=== PATIENT | male | born 1990 | race American Indian/Alaskan Native ===

== ENCOUNTER 2016-12-28 10:26 | Emergency (ER) | payer MEDICAID ==
[2016-12-28 10:39] VITALS: BP 107/67
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
[2016-12-28 11:24] LABS: Hematocrit 41.8 % (35.5-45.6); Hemoglobin 14.3 gm/dl (11.8-15.2); Mean Corpuscular HGB Conc 34 % (32-34); Mean Corpuscular Hemoglobin 30 pg (28-32); Mean Corpuscular Volume 88 fl (84-94); Platelet Count 200 K/mm3 (140-440); Red Blood Count 4.78 M/mm3 (3.65-5.03); Red Cell Distribution Width 12.9 % (13.2-15.2)
[2016-12-28 11:35] LABS: INR 1.04 (0.87-1.13)
[2016-12-28 11:36] LABS: Partial Thromboplastin Time 27.9 Sec. (24.2-36.6)
[2016-12-28 11:41] LABS: Alanine Aminotransferase 22 units/L (7-56); Albumin 4.5 g/dL (3.9-5); Albumin/Globulin Ratio 1.4 %; Alkaline Phosphatase 77 units/L (35-129); Anion Gap 17 mmol/L; Blood Urea Nitrogen 22 mg/dL (9-20); Carbon Dioxide 23 mmol/L (22-30); Chloride 101.5 mmol/L (98-107); Glucose 100 mg/dL (75-100); Potassium 3.8 mmol/L (3.6-5.0); Sodium 138 mmol/L (137-145); Total Protein 7.7 g/dL (6.3-8.2)
--- NOTE | 2016-12-28 12:40 | Emergency Department Report ---
ED General Adult HPI - General Chief complaint: Extremity Injury, Upper Stated complaint: RT CASSANDRA SWOLLEN Time Seen by Provider: 12/28/16 12:36 Source: patient Mode of arrival: Ambulatory Limitations: No Limitations - History of Present Illness Initial comments: 26-year-old male presents to the ED complaining about pain to the right ring with associated itching. Patient states it started with itching and then got little swollen. States now the swelling has decreased and it is just itchy. Denies induration, pus drainage. - Related Data Previous Rx's Medication Instructions Recorded Last Taken Type Hydrocortisone 2.5% [Hytone 2.5% 1 applicatio TP TID #1 tube 12/28/16 Unknown Rx CREAM] Sulfamethoxazole/Trimethoprim 1 each PO BID #14 tablet 12/28/16 Unknown Rx [Bactrim DS TAB] Allergies Allergy/AdvReac Type Severity Reaction Status Date / Time No Known Allergies Allergy Unverified 12/28/16 10:35 ED Review of Systems ROS: Stated complaint: RT CASSANDRA SWOLLEN Other details as noted in HPI Constitutional: denies: chills, fever Eyes: denies: eye pain, eye discharge, vision change ENT: denies: ear pain, throat pain Respiratory: denies: cough, shortness of breath, wheezing Cardiovascular: denies: chest pain, palpitations Endocrine: no symptoms reported Gastrointestinal: denies: abdominal pain, nausea, diarrhea Genitourinary: denies: urgency, dysuria Musculoskeletal: denies: back pain, joint swelling, arthralgia Skin: rash. denies: lesions Neurological: denies: headache, weakness, paresthesias Psychiatric: denies: anxiety, depression Hematological/Lymphatic: denies: easy bleeding, easy bruising ED Past Medical Hx - Past Medical History Previous Medical History?: No - Surgical History Past Surgical History?: Yes Additional Surgical History: skin grafts - Social History Smoking Status: Never Smoker Substance Use Type: None - Medications Home Medications: Home Medications Medication Instructions Recorded Confirmed Last Taken Type Hydrocortisone 2.5% [Hytone 2.5% 1 applicatio TP TID #1 tube 12/28/16 Unknown Rx CREAM] Sulfamethoxazole/Trimethoprim 1 each PO BID #14 tablet 12/28/16 Unknown Rx [Bactrim DS TAB] ED Physical Exam - General Limitations: No Limitations General appearance: alert, in no apparent distress - Head Head exam: Present: atraumatic, normocephalic - Eye Eye exam: Present: normal appearance - ENT ENT exam: Present: mucous membranes moist - Neck Neck exam: Present: normal inspection - Respiratory Respiratory exam: Present: normal lung sounds bilaterally. Absent: respiratory distress - Cardiovascular Cardiovascular Exam: Present: regular rate, normal rhythm. Absent: systolic murmur, diastolic murmur, rubs, gallop - GI/Abdominal GI/Abdominal exam: Present: soft, normal bowel sounds - Rectal Rectal exam: Present: deferred - Extremities Exam Extremities exam: Present: normal inspection - Back Exam Back exam: Present: normal inspection - Neurological Exam Neurological exam: Present: alert, oriented X3 - Psychiatric Psychiatric exam: Present: normal affect, normal mood - Skin Skin exam: Present: warm, dry, intact, normal color, other (there is a papule on the right ring finger with slight tenderness. No sign of swelling, thus drainage, warmth.). Absent: rash ED Course Vital Signs 12/28/16 10:35 Temperature 97.7 F Pulse Rate 80 Respiratory 16 Rate Blood Pressure 107/67 O2 Sat by Pulse 97 Oximetry ED Medical Decision Making - Lab Data Result diagrams: 12/28/16 11:09 12/28/16 11:09 Vital Signs 12/28/16 10:35 Temperature 97.7 F Pulse Rate 80 Respiratory 16 Rate Blood Pressure 107/67 O2 Sat by Pulse 97 Oximetry Laboratory Results - last 24 hr 12/28/16 12/28/16 12/28/16 11:09 11:09 11:09 WBC 6.0 RBC 4.78 Hgb 14.3 Hct 41.8 MCV 88 MCH 30 MCHC 34 RDW 12.9 L Plt Count 200 PT 13.5 INR 1.04 APTT 27.9 D-Dimer < 135.00 Sodium 138 Potassium 3.8 Chloride 101.5 Carbon Dioxide 23 Anion Gap 17 BUN 22 H Creatinine 0.8 Estimated GFR > 60 BUN/Creatinine Ratio 27.50 Glucose 100 Calcium 9.0 Total Bilirubin 1.20 AST 18 ALT 22 Alkaline Phosphatase 77 Total Protein 7.7 Albumin 4.5 Albumin/Globulin Ratio 1.4 - Medical Decision Making Patient is resting comfortably at this time. Lab work was ordered in triage. Labs were negative and no sign of abscess. We'll cover with antibiotics and hydrocortisone cream for itching. Critical care attestation.: If time is entered above; I have spent that time in minutes in the direct care of this critically ill patient, excluding procedure time. ED Disposition Clinical Impression: Rash and nonspecific skin eruption Disposition: DISCHARGED TO HOME OR SELFCARE Is pt being admited?: No Does the pt Need Aspirin: No Condition: Good Instructions: Urticaria (ED) Additional Instructions: Take medication as prescribed. Use ointment as needed. Prescriptions: Hydrocortisone 2.5% [Hytone 2.5% CREAM] 1 applicatio TP TID #1 tube Sulfamethoxazole/Trimethoprim [Bactrim DS TAB] 1 each PO BID #14 tablet Referrals: PRIMARY CARE, [Primary Care Provider] - 3-5 Days Forms: Work/School Release Form(ED) Time of Disposition: 12:40
--- NOTE | 2016-12-29 07:58 | Vascular Lab Report ---
RIGHT UPPER EXTREMITY VENOUS DUPLEX: REASON FOR EXAM: History of DVT COMMENTS ON THE RIGHT: All arm veins visualized are freely compressible without evidence of internal echogenicity. The subclavian and internal jugular veins are free of thrombus. Flow is spontaneous and phasic throughout. COMMENTS ON THE LEFT: The subclavian and internal jugular veins are free of thrombus. IMPRESSION: No evidence of acute or chronic deep venous thrombosis in the right upper extremity.
== END 2016-12-28 12:57 | disposition home or self-care (01) ==
LOC: ED 10:26
DX: R21 Rash and other nonspecific skin eruption (principal)
CPT/HCPCS: 36415; 80053; 85027; 85379; 85610; 85730

== ENCOUNTER 2017-04-17 19:34 | Emergency (ER) | payer MEDICAID ==
[2017-04-17 22:05] LABS: Bilirubin,Urine NEG (Negative); Blood,Urine NEG (Negative); Ketones,Urine NEG (Negative); Leukocyte Esterase,Urine TR (Negative); Mucus,Urine FEW /HPF; Nitrite,Urine NEG (Negative); Protein,Urine <15 mg/dL mg/dL (Negative); Urobilinogen,Urine < 2.0 mg/dL (<2.0)
[2017-04-17] MEDS ORDERED: ROCEPHIN IM ONE (22:41)
[2017-04-17] MEDS ORDERED: ZITHROMAX PO ONE (22:41)
[2017-04-17] MEDS ORDERED: XYLOCAINE 1% MPF 5 mL INFILTRATI ONE (22:41)
--- NOTE | 2017-04-17 22:49 | Emergency Department Report ---
ED Male HPI - General Chief complaint: Urogenital-Male Stated complaint: STD SCREENING Time Seen by Provider: 04/17/17 22:35 Source: patient Mode of arrival: Ambulatory Limitations: No Limitations - History of Present Illness Initial comments: PT states he had full panel STD testing a few weeks ago. PT states he has been having unprotected sex. PT states today he had dysuria and he wanted to get checked. MD Complaint: dysuria -: Gradual, days(s) Location: penis Severity: mild Severity scale (0 -10): 1 Quality: burning (with urination ) Consistency: intermittent (with urination ) Worsens with: urination new sexual partner denies other symptoms. denies: fever, nausea/vomiting - Related Data Sexually active: Yes Previous Rx's Medication Instructions Recorded Last Taken Type Hydrocortisone 2.5% [Hytone 2.5% 1 applicatio TP TID #1 tube 12/28/16 Unknown Rx CREAM] Sulfamethoxazole/Trimethoprim 1 each PO BID #14 tablet 12/28/16 Unknown Rx [Bactrim DS TAB] Allergies Allergy/AdvReac Type Severity Reaction Status Date / Time No Known Allergies Allergy Unverified 12/28/16 10:35 ED Review of Systems ROS: Stated complaint: STD SCREENING Other details as noted in HPI Comment: All other systems reviewed and negative Constitutional: denies: fever ENT: denies: throat pain Gastrointestinal: denies: abdominal pain Genitourinary: dysuria. denies: discharge, testicular pain, testicular mass Musculoskeletal: denies: back pain Skin: denies: rash ED Past Medical Hx - Past Medical History Previous Medical History?: No - Surgical History Additional Surgical History: skin grafts - Social History Smoking Status: Never Smoker Substance Use Type: None - Medications Home Medications: Home Medications Medication Instructions Recorded Confirmed Last Taken Type Hydrocortisone 2.5% [Hytone 2.5% 1 applicatio TP TID #1 tube 12/28/16 Unknown Rx CREAM] Sulfamethoxazole/Trimethoprim 1 each PO BID #14 tablet 12/28/16 Unknown Rx [Bactrim DS TAB] ED Physical Exam - General Limitations: No Limitations General appearance: alert, in no apparent distress - Head Head exam: Present: atraumatic, normocephalic, other (skin graft scars noted ) - Eye Eye exam: Present: normal appearance, PERRL, EOMI. Absent: conjunctival injection - ENT ENT exam: Present: normal exam, mucous membranes moist, normal external ear exam - Neck Neck exam: Present: normal inspection, full ROM - Respiratory Respiratory exam: Present: normal lung sounds bilaterally. Absent: respiratory distress, chest wall tenderness - Cardiovascular Cardiovascular Exam: Present: regular rate, normal rhythm, normal heart sounds - GI/Abdominal GI/Abdominal exam: Present: soft. Absent: tenderness - Extremities Exam Extremities exam: Present: normal inspection, full ROM - Back Exam Back exam: Present: normal inspection, full ROM. Absent: tenderness, CVA tenderness (R), CVA tenderness (L), muscle spasm, paraspinal tenderness, vertebral tenderness - Neurological Exam Neurological exam: Present: alert, oriented X3 - Psychiatric Psychiatric exam: Present: normal affect, normal mood - Skin Skin exam: Present: warm, dry, intact ED Course Vital Signs 04/17/17 20:54 Temperature 98.3 F Pulse Rate 72 Respiratory 18 Rate Blood Pressure 119/70 Blood Pressure 119/70 [Left] O2 Sat by Pulse 99 Oximetry - Reevaluation(s) Reevaluation #1: 04/17/17 22:44 PT aware of available lab results. PT aware gc/ct testing is pending. PT requesting empiric treatment. PT aware he is to refrain from sexual activity for the next 7 days. PT encouraged to follow up for full panel std testing. PT aware his partners may need testing/ treatment. PT has no questions at this time. - Pulse Oximetry Interpretation Digit-Finger Initial Pulse Oximetry Readin Actions Taken: none ED Medical Decision Making - Differential Diagnosis uti, std Critical Care Time: No Critical care attestation.: If time is entered above; I have spent that time in minutes in the direct care of this critically ill patient, excluding procedure time. ED Disposition Clinical Impression: Dysuria, Risky sexual behavior Disposition: DC-01 TO HOME OR SELFCARE Is pt being admited?: No Does the pt Need Aspirin: No Condition: Stable Instructions: Sexually Transmitted Diseases (ED), Safe Sex (ED) Additional Instructions: No sex x 7 days Follow up with medical records in the next 3-5 days for copies of your lab work / cultures your partners may needs testing/ treatment follow up with PCP or health dept for full panel std testing Referrals: COURT LIN MD [Primary Care Provider] - 3-5 Days MARBELLA HENDRIX MD [Staff Physician] - 3-5 Days [facility] [Outside] - 3-5 Days [facility] [Outside] - 3-5 Days Forms: Work/School Release Form(ED) Time of Disposition: 22:50
[2017-04-17 23:22] VITALS: BP 129/75
== END 2017-04-17 23:25 | disposition home or self-care (01) ==
LOC: ED 19:34
DX: R30.0 Dysuria (principal); R46.89 Other symptoms and signs involving appearance and behavior
CPT/HCPCS: 81001; 87591; 96372; 99283; J0696

== ENCOUNTER 2017-06-02 14:19 | Emergency (ER) | payer MEDICAID ==
[2017-06-02] MEDS ORDERED: ZITHROMAX PO ONE (20:21)
[2017-06-02] MEDS ORDERED: ROCEPHIN IM ONE (20:21)
[2017-06-02] MEDS ORDERED: XYLOCAINE 1% MPF 5 mL INFILTRATI ONE (20:21)
--- NOTE | 2017-06-02 20:26 | Emergency Department Report ---
ED Male HPI - General Chief complaint: Urogenital-Male Stated complaint: STD SCREENING Time Seen by Provider: 06/02/17 19:19 Source: patient Mode of arrival: Ambulatory Limitations: No Limitations - History of Present Illness Initial comments: This is a 27-year-old male nontoxic, well nourished in appearance, no acute signs of distress presents to the ED complaining of possible STD exposure and penile itching. Patient stated he had intercourse with unknown partner last week and developed the symptoms. Patient denies any penile discharge, testicular pain, penile lesion or ulcer, fever, chills, nausea, vomiting, chest pain, shortness of breath, dysuria, polyuria, hematuria, numbness or tingling. Patient denies any allergies or past medical history. PAtient stated that he thinks he develped the itching due to latex condoms and stated symptoms has subsided but is still concerned about STD exposure and wants to be treated empirically. MD Complaint: other (penile itching) -: Gradual, week(s) (1) Location: penis Radiation: none Severity: mild Severity scale (0 -10): 5 Quality: other (itching) Consistency: constant Improves with: none Worsens with: none denies other symptoms, other (penile itching). denies: discharge, swelling, mass, rash, urinary retention, blood in urine, dysuria, fever, nausea/vomiting, incontinence - Related Data Sexually active: Yes Previous Rx's Medication Instructions Recorded Last Taken Type Hydrocortisone 2.5% [Hytone 2.5% 1 applicatio TP TID #1 tube 12/28/16 Unknown Rx CREAM] Sulfamethoxazole/Trimethoprim 1 each PO BID #14 tablet 12/28/16 Unknown Rx [Bactrim DS TAB] Allergies Allergy/AdvReac Type Severity Reaction Status Date / Time No Known Allergies Allergy Unverified 12/28/16 10:35 ED Review of Systems ROS: Stated complaint: STD SCREENING Other details as noted in HPI Constitutional: denies: chills, fever Eyes: denies: eye pain, eye discharge, vision change ENT: denies: ear pain, throat pain Respiratory: denies: cough, shortness of breath, wheezing Cardiovascular: denies: chest pain, palpitations Endocrine: no symptoms reported Gastrointestinal: denies: abdominal pain, nausea, diarrhea Genitourinary: other (penile itching). denies: urgency, dysuria Musculoskeletal: denies: back pain, joint swelling, arthralgia Skin: denies: rash, lesions Neurological: denies: headache, weakness, paresthesias Psychiatric: denies: anxiety, depression Hematological/Lymphatic: denies: easy bleeding, easy bruising ED Past Medical Hx - Past Medical History Previous Medical History?: No - Surgical History Past Surgical History?: Yes Additional Surgical History: skin grafts - Social History Smoking Status: Never Smoker Substance Use Type: None - Medications Home Medications: Home Medications Medication Instructions Recorded Confirmed Last Taken Type Hydrocortisone 2.5% [Hytone 2.5% 1 applicatio TP TID #1 tube 12/28/16 Unknown Rx CREAM] Sulfamethoxazole/Trimethoprim 1 each PO BID #14 tablet 12/28/16 Unknown Rx [Bactrim DS TAB] ED Physical Exam - General Limitations: No Limitations General appearance: alert, in no apparent distress - Head Head exam: Present: atraumatic, normocephalic - Eye Eye exam: Present: normal appearance, PERRL, EOMI. Absent: scleral icterus, conjunctival injection, nystagmus, periorbital swelling, periorbital tenderness Pupils: Present: normal accommodation - ENT ENT exam: Present: normal exam, normal orophraynx, mucous membranes moist, TM's normal bilaterally, normal external ear exam - Neck Neck exam: Present: normal inspection, full ROM. Absent: tenderness, meningismus, lymphadenopathy, thyromegaly - Respiratory Respiratory exam: Present: normal lung sounds bilaterally. Absent: respiratory distress, wheezes, rales, rhonchi, stridor, chest wall tenderness, accessory muscle use, decreased breath sounds, prolonged expiratory - Cardiovascular Cardiovascular Exam: Present: regular rate, normal rhythm, normal heart sounds. Absent: bradycardia, tachycardia, irregular rhythm, systolic murmur, diastolic murmur, rubs, gallop - GI/Abdominal GI/Abdominal exam: Present: soft, normal bowel sounds. Absent: distended, tenderness, guarding, rebound, rigid, diminished bowel sounds - Rectal Rectal exam: Present: deferred - exam: Present: normal inspection. Absent: testicular tenderness, urethral discharge, scrotal swelling, vertical testicular lie External exam: Present: normal external exam, other (No rash, lesion, ulcers or abnormal exam. ). Absent: erythema, swelling, lesions, lacerations, ecchymosis , bleeding - Extremities Exam Extremities exam: Present: normal inspection, full ROM, normal capillary refill. Absent: tenderness, pedal edema, joint swelling, calf tenderness - Back Exam Back exam: Present: normal inspection, full ROM. Absent: tenderness, CVA tenderness (R), CVA tenderness (L), muscle spasm, paraspinal tenderness, vertebral tenderness, rash noted - Neurological Exam Neurological exam: Present: alert, oriented X3, CN II-XII intact, normal gait, reflexes normal - Psychiatric Psychiatric exam: Present: normal affect, normal mood - Skin Skin exam: Present: warm, dry, intact, normal color. Absent: rash ED Course Vital Signs 06/02/17 14:25 Temperature 97.6 F Pulse Rate 80 Respiratory 14 Rate Blood Pressure 128/72 [Right] O2 Sat by Pulse 99 Oximetry - Reevaluation(s) Reevaluation #1: 06/02/17 20:31 Patient is speaking in full sentences with no signs of distress noted. Reevaluation #2: 06/02/17 20:31 Patient received Rocephin and azithromycin empirically for STD. Patient was instructed to return in 3 days to obtain gonorrhea and chlamydia. Reevaluation #3: 06/02/17 20:32 UA obtained and pending. Critical care attestation.: If time is entered above; I have spent that time in minutes in the direct care of this critically ill patient, excluding procedure time. ED Disposition Clinical Impression: Possible exposure to STD Disposition: DC-01 TO HOME OR SELFCARE Is pt being admited?: No Does the pt Need Aspirin: No Condition: Stable Instructions: Safe Sex (ED) Additional Instructions: Follow-up with a primary care doctor in 3-5 days or if symptoms worsen and continue return to emergency room as soon as possible possible. Return in 3 days medical records to obtain results of gonorrhea and chlamydia Referrals: COURT LIN MD [Primary Care Provider] - 3-5 Days JAKOB JASSO MD [Staff Physician] - 3-5 Days [facility] [Outside] - 3-5 Days [facility] [Outside] - 3-5 Days Forms: Work/School Release Form(ED)
[2017-06-02 20:58] LABS: Bilirubin,Urine NEG (Negative); Blood,Urine NEG (Negative); Ketones,Urine NEG (Negative); Leukocyte Esterase,Urine NEG (Negative); Nitrite,Urine NEG (Negative); Protein,Urine <15 mg/dL mg/dL (Negative); RBC,Urine < 1.0 /HPF (0.0-6.0); Urobilinogen,Urine < 2.0 mg/dL (<2.0); WBC,Urine < 1.0 /HPF (0.0-6.0)
[2017-06-03 03:46] VITALS: BP 116/70
== END 2017-06-02 21:20 | disposition home or self-care (01) ==
LOC: ED 14:19
DX: N48.89 Other specified disorders of penis (principal)
CPT/HCPCS: 81001; 96372; 99283; J0696; 87591

== ENCOUNTER 2017-09-02 12:52 | Emergency (ER) | payer MEDICAID ==
--- NOTE | 2017-09-02 20:22 | Emergency Department Report ---
ED Male HPI - General Chief complaint: Urogenital-Male Stated complaint: GENITAL TINGLING Time Seen by Provider: 09/02/17 20:11 Source: patient Mode of arrival: Ambulatory Limitations: No Limitations - History of Present Illness Initial comments: This 27-year-old male nontoxic, well nourished in appearance, no acute signs of distress presents to the ED with c/o of dysuria, penile itching and irritation 1 only. Patient stated he had a sexual intercourse last week and then developed the symptoms. Patient denies any penile discharge, testicular pain, testicular swelling, fever, chills, nausea, vomiting, chest pain, shortness of breath, abdominal pain, back pain, headache, stiff neck, penile ulcer or penile lesion. Patient denies hematuria or polyuria. Patient denies any allergies or PMH. Patient stated he wants empirical treatment for STD. MD Complaint: dysuria, other (penile irritation and itching) -: week(s) (1) Location: penis Radiation: none Severity: mild Severity scale (0 -10): 8 Quality: burning Consistency: constant Improves with: none Worsens with: urination dysuria. denies: discharge, swelling, mass, rash, urinary retention, blood in urine, fever, nausea/vomiting, incontinence - Related Data Previous Rx's Medication Instructions Recorded Last Taken Type Hydrocortisone 2.5% [Hytone 2.5% 1 applicatio TP TID #1 tube 12/28/16 Unknown Rx CREAM] Sulfamethoxazole/Trimethoprim 1 each PO BID #14 tablet 12/28/16 Unknown Rx [Bactrim DS TAB] Allergies Allergy/AdvReac Type Severity Reaction Status Date / Time No Known Allergies Allergy Unverified 12/28/16 10:35 ED Review of Systems ROS: Stated complaint: GENITAL TINGLING Other details as noted in HPI Constitutional: denies: chills, fever Eyes: denies: eye pain, eye discharge, vision change ENT: denies: ear pain, throat pain Respiratory: denies: cough, shortness of breath, wheezing Cardiovascular: denies: chest pain, palpitations Endocrine: no symptoms reported Gastrointestinal: denies: abdominal pain, nausea, diarrhea Genitourinary: dysuria. denies: urgency Musculoskeletal: denies: back pain, joint swelling, arthralgia Skin: denies: rash, lesions Neurological: denies: headache, weakness, paresthesias Psychiatric: denies: anxiety, depression Hematological/Lymphatic: denies: easy bleeding, easy bruising ED Past Medical Hx - Past Medical History Previous Medical History?: No - Surgical History Past Surgical History?: Yes Additional Surgical History: skin grafts - Social History Smoking Status: Never Smoker Substance Use Type: None - Medications Home Medications: Home Medications Medication Instructions Recorded Confirmed Last Taken Type Hydrocortisone 2.5% [Hytone 2.5% 1 applicatio TP TID #1 tube 12/28/16 Unknown Rx CREAM] Sulfamethoxazole/Trimethoprim 1 each PO BID #14 tablet 12/28/16 Unknown Rx [Bactrim DS TAB] ED Physical Exam - General Limitations: No Limitations General appearance: alert, in no apparent distress - Head Head exam: Present: atraumatic, normocephalic, normal inspection - Eye Eye exam: Present: normal appearance, PERRL, EOMI. Absent: scleral icterus, conjunctival injection, nystagmus, periorbital swelling, periorbital tenderness Pupils: Present: normal accommodation - ENT ENT exam: Present: normal exam, normal orophraynx, mucous membranes moist, TM's normal bilaterally, normal external ear exam - Neck Neck exam: Present: normal inspection, full ROM. Absent: tenderness, meningismus, lymphadenopathy, thyromegaly - Respiratory Respiratory exam: Present: normal lung sounds bilaterally. Absent: respiratory distress, wheezes, rales, rhonchi, stridor, chest wall tenderness, accessory muscle use, decreased breath sounds, prolonged expiratory - Cardiovascular Cardiovascular Exam: Present: regular rate, normal rhythm, normal heart sounds. Absent: bradycardia, tachycardia, irregular rhythm, systolic murmur, diastolic murmur, rubs, gallop - GI/Abdominal GI/Abdominal exam: Present: soft, normal bowel sounds. Absent: distended, tenderness, guarding, rebound, rigid, diminished bowel sounds - Rectal Rectal exam: Present: deferred - exam: Present: normal inspection. Absent: testicular tenderness, urethral discharge, scrotal swelling, vertical testicular lie, circumcision External exam: Present: normal external exam. Absent: erythema, swelling, lesions, lacerations, ecchymosis, bleeding - Extremities Exam Extremities exam: Present: normal inspection, full ROM, normal capillary refill. Absent: tenderness, pedal edema, joint swelling, calf tenderness - Back Exam Back exam: Present: normal inspection, full ROM. Absent: tenderness, CVA tenderness (R), CVA tenderness (L), muscle spasm, paraspinal tenderness, vertebral tenderness, rash noted - Neurological Exam Neurological exam: Present: alert, oriented X3, CN II-XII intact, normal gait, reflexes normal - Psychiatric Psychiatric exam: Present: normal affect, normal mood - Skin Skin exam: Present: warm, dry, intact, normal color. Absent: rash ED Course Vital Signs 09/02/17 14:40 Temperature 97.5 F L Pulse Rate 75 Respiratory 18 Rate Blood Pressure 119/75 O2 Sat by Pulse 100 Oximetry - Reevaluation(s) Reevaluation #1: 09/02/17 20:21 Patient is speaking in full sentences with no signs of distress noted. ED Medical Decision Making - Medical Decision Making This is a 27-year-old male who presents with possible STD exposure. Patient is stable and was examined by me. UA obtained. Gonorrhea and chlamydia obtained and pending. Patient was instructed to return in 3 days to obtain results of that area chlamydia. Patient said he wants to be treated empirically so patient received Rocephin and azithromycin in the ED. Patient was instructed Follow-up with a primary care doctor in 3-5 days or if symptoms worsen and continue return to emergency room as soon as possible. At time time of discharge, the patient does not seem toxic or ill in appearance. No acute signs of distress noted. Patient agrees to discharge treatment plan of care. No further questions noted by the patient. Critical care attestation.: If time is entered above; I have spent that time in minutes in the direct care of this critically ill patient, excluding procedure time. ED Disposition Clinical Impression: Possible exposure to STD Disposition: DC-01 TO HOME OR SELFCARE Is pt being admited?: No Does the pt Need Aspirin: No Condition: Stable Instructions: Safe Sex (ED) Additional Instructions: Follow-up with a primary care doctor in 3-5 days or if symptoms worsen and continue return to emergency room as soon as possible. Return in 3 days to obtain results of gonorrhea and chlamydia Referrals: PRIMARY MD RILEY [Primary Care Provider] - 3-5 Days AVANI COHEN MD [Staff Physician] - 3-5 Days [facility] [Outside] - 3-5 Days [facility] [Outside] - 3-5 Days Forms: Work/School Release Form(ED)
[2017-09-02 20:40] LABS: Bilirubin,Urine NEG (Negative); Blood,Urine NEG (Negative); Color,Urine Yellow (Yellow); Nitrite,Urine NEG (Negative); Protein,Urine <15 mg/dL mg/dL (Negative)
[2017-09-02] MEDS ORDERED: XYLOCAINE 1% MPF 5 mL INFILTRATI ONE (20:42)
[2017-09-02] MEDS ORDERED: ROCEPHIN IM ONE (20:42)
[2017-09-02] MEDS ORDERED: ZITHROMAX PO ONE (20:42)
[2017-09-02 21:07] VITALS: BP 154/84
== END 2017-09-02 21:07 | disposition home or self-care (01) ==
LOC: ED 12:52
DX: R30.0 Dysuria (principal); N48.89 Other specified disorders of penis
CPT/HCPCS: 81001; 87591; 96372; 99283; J0696

== ENCOUNTER 2018-01-26 10:26 | Emergency (ER) | payer MEDICAID ==
[2018-01-26 11:18] VITALS: BP 98/45
--- NOTE | 2018-01-26 13:16 | Emergency Department Report ---
ED Rash HPI - HPI Chief Complaint: Skin Rash Stated Complaint: L ARM RASH Time Seen by Provider: 01/26/18 12:12 Duration: 2 Days Location: Upper Extremities (right forearm) Suspected Cause: Unknown Rash Symptoms: Yes Itching, No Facial Swelling, No Tongue/Oral Swelling, No Breathing Difficulties, No Choking Sensation, No Wheezing/Dyspnea, No Peeling, No Blistering, No Fever, No Lightheaded, No Malaise, No Myalgias Severity: mild Other History: This is a 27-year-old -[place] male who presents with a rash to the left forearm for 2 days. Patient reports applying shape bladder and Eucerin cream with some improvement on the first day the symptoms returned yesterday. Patient does have a history of skin grafts from [place] when he was a child and periodically have skin sensitivity. Patient reports starting a new soap last week and symptoms started 4-5 days later. States rash is itchy and intermittent. Patient denies shortness of breath, drooling, difficulty breathing, chest pain, and tongue swelling. ED Review of Systems ROS: Stated complaint: L ARM RASH Other details as noted in HPI Constitutional: denies: chills, fever Respiratory: denies: cough, shortness of breath, wheezing Cardiovascular: denies: chest pain, palpitations Gastrointestinal: denies: abdominal pain, nausea, vomiting, diarrhea Skin: rash (left forearm). denies: lesions, change in color, change in hair/ nails Neurological: denies: headache, weakness, paresthesias Psychiatric: denies: anxiety, depression ED Past Medical Hx - Past Medical History Previous Medical History?: No - Surgical History Past Surgical History?: Yes Additional Surgical History: skin grafts - Social History Smoking Status: Never Smoker Substance Use Type: None - Medications Home Medications: Home Medications Medication Instructions Recorded Confirmed Last Taken Type Hydrocortisone 2.5% [Hytone 2.5% 1 applicatio TP TID #1 tube 12/28/16 Unknown Rx CREAM] Sulfamethoxazole/Trimethoprim 1 each PO BID #14 tablet 12/28/16 Unknown Rx [Bactrim DS TAB] Triamcinolone Acetonide 15 gm TP BID #1 cream..g. 01/26/18 Unknown Rx Rash Exam - Exam General: Vital signs noted. No distress. Alert and acting appropriately. HEENT: No Periorbital Edema, No Conjuctival Injection, No Chemosis, No Perioral Edema, No Tongue Edema, No Uvular Edema, No Compromised Airway, No Drooling Lungs: Yes Good Air Exchange (Normal Breath Sounds), No Wheezes, No Ronchi, No Stridor, No Cough, No Labored Respirations, No Retractions, No Use of Accessory Muscles, No Other Abnormal Lung Sounds Heart: Yes Regular, No Murmur Skin: Yes Maculopapular Rash (erythematous maculopapular 2-3 cm rash to posterior forearm, blanchable, nontender), No Urticarial Rash, No Morbilliform rash, No Bulla(e), No Excoriations, No Weeping, No Tenderness, No Erythema, No Edema, No Encrustations, No Other ED Course Vital Signs 01/26/18 11:14 Temperature 98.6 F Pulse Rate 74 Respiratory 16 Rate Blood Pressure 98/45 O2 Sat by Pulse 99 Oximetry ED Medical Decision Making - Medical Decision Making This is a 27-year-old -[place] male Presents with rash to left forearm. History of skin grafts. Patient examined by me. No distress noted. Vitals stable. Physical assessment susceptible of contact dermatitis. Start triamcinolone cream and f/u with PCP in 24-72 hours. Discussed plan with patient and agreed to plan. Referrals to dermatology. Critical care attestation.: If time is entered above; I have spent that time in minutes in the direct care of this critically ill patient, excluding procedure time. ED Disposition Clinical Impression: Contact dermatitis Qualifiers: Contact dermatitis type: irritant Contact dermatitis trigger: unspecified trigger Qualified Code(s): L24.9 - Irritant contact dermatitis, unspecified cause Disposition: DC-01 TO HOME OR SELFCARE Is pt being admited?: No Does the pt Need Aspirin: No Condition: Stable Instructions: Contact Dermatitis (ED) Additional Instructions: Apply a thin layer of triamcinolone cream twice a day for 5-10 days. Wash area daily. Follow up with primary care provider in 24-72 hours. Prescriptions: Triamcinolone Acetonide 15 gm TP BID #1 cream..g. Referrals: KENNEDY CORRAL MD [Staff Physician] - 3-5 Days ANTHONY LOERA MD [Staff Physician] - 3-5 Days [facility] [Outside] - 3-5 Days Forms: Work/School Release Form(ED) Time of Disposition: 13:20 Print Language: MACEDONIAN
== END 2018-01-26 13:31 | disposition home or self-care (01) ==
LOC: ED 10:26
DX: L24.9 Irritant contact dermatitis, unspecified cause (principal)
CPT/HCPCS: 99282

== ENCOUNTER 2018-04-07 17:31 | Emergency (ER) | payer MEDICAID ==
[2018-04-07 17:46] VITALS: BP 109/64
[2018-04-07] MEDS ORDERED: ROCEPHIN IM ONE (21:08)
[2018-04-07] MEDS ORDERED: ZITHROMAX PO ONE (21:08)
[2018-04-07] MEDS ORDERED: XYLOCAINE 1% MPF 5 mL INFILTRATI ONE (21:08)
--- NOTE | 2018-04-07 21:08 | Emergency Department Report ---
ED Male HPI - General Chief complaint: Urogenital-Male Stated complaint: STD TESTING Time Seen by Provider: 04/07/18 19:47 Source: patient Mode of arrival: Ambulatory Limitations: No Limitations - History of Present Illness Initial comments: This is a 27-year-old male nontoxic, well nourished in appearance, no acute signs of distress presents to the ED with c/o of tingling sensation during urination x3 days. Patient denies any testicular pain or swelling. Patient denies any penile ulcers or lesions. Patient denies any nausea, vomiting, chest pain, shortness of breathe, fever, chills, headache, back pain, numbness, tingling, stiff neck. Patient stated that he is also concerned about STD and wanted to be tested and treated empirically. Patient denies any penile discharge. Patient denies any urinary symptoms. Patient denies any allergies or PMH. -: days(s) (3) Location: penis Radiation: none Severity scale (0 -10): 0 Improves with: none Worsens with: none denies other symptoms. denies: discharge, swelling, mass, rash, urinary retention, blood in urine, dysuria, fever, nausea/vomiting, incontinence - Related Data Previous Rx's Medication Instructions Recorded Last Taken Type Hydrocortisone 2.5% [Hytone 2.5% 1 applicatio TP TID #1 tube 12/28/16 Unknown Rx CREAM] Sulfamethoxazole/Trimethoprim 1 each PO BID #14 tablet 12/28/16 Unknown Rx [Bactrim DS TAB] Triamcinolone Acetonide 15 gm TP BID #1 cream..g. 01/26/18 Unknown Rx Allergies Allergy/AdvReac Type Severity Reaction Status Date / Time No Known Allergies Allergy Unverified 12/28/16 10:35 ED Review of Systems ROS: Stated complaint: STD TESTING Other details as noted in HPI Constitutional: denies: chills, fever Eyes: denies: eye pain, eye discharge, vision change ENT: denies: ear pain, throat pain Respiratory: denies: cough, shortness of breath, wheezing Cardiovascular: denies: chest pain, palpitations Endocrine: no symptoms reported Gastrointestinal: denies: abdominal pain, nausea, diarrhea Genitourinary: denies: urgency, dysuria Musculoskeletal: denies: back pain, joint swelling, arthralgia Skin: denies: rash, lesions Neurological: denies: headache, weakness, paresthesias Psychiatric: denies: anxiety, depression Hematological/Lymphatic: denies: easy bleeding, easy bruising ED Past Medical Hx - Past Medical History Previous Medical History?: No - Surgical History Past Surgical History?: Yes Additional Surgical History: skin grafts - Social History Smoking Status: Never Smoker Substance Use Type: None - Medications Home Medications: Home Medications Medication Instructions Recorded Confirmed Last Taken Type Hydrocortisone 2.5% [Hytone 2.5% 1 applicatio TP TID #1 tube 12/28/16 Unknown Rx CREAM] Sulfamethoxazole/Trimethoprim 1 each PO BID #14 tablet 12/28/16 Unknown Rx [Bactrim DS TAB] Triamcinolone Acetonide 15 gm TP BID #1 cream..g. 01/26/18 Unknown Rx ED Physical Exam - General Limitations: No Limitations General appearance: alert, in no apparent distress - Head Head exam: Present: atraumatic, normocephalic - Eye Eye exam: Present: normal appearance Pupils: Present: normal accommodation - ENT ENT exam: Present: normal exam, mucous membranes moist - Neck Neck exam: Present: normal inspection, full ROM. Absent: tenderness, meningismus, lymphadenopathy - Respiratory Respiratory exam: Present: normal lung sounds bilaterally. Absent: respiratory distress, wheezes, rales, rhonchi, stridor, chest wall tenderness, accessory muscle use, decreased breath sounds, prolonged expiratory - Cardiovascular Cardiovascular Exam: Present: regular rate, normal rhythm. Absent: systolic murmur, diastolic murmur, rubs, gallop - GI/Abdominal GI/Abdominal exam: Present: soft, normal bowel sounds - Rectal Rectal exam: Present: deferred - Extremities Exam Extremities exam: Present: normal inspection - Back Exam Back exam: Present: normal inspection - Neurological Exam Neurological exam: Present: alert, oriented X3 - Psychiatric Psychiatric exam: Present: normal affect, normal mood - Skin Skin exam: Present: warm, dry, intact, normal color. Absent: rash ED Course Vital Signs 04/07/18 17:36 Temperature 97.7 F Pulse Rate 75 Blood Pressure 109/64 O2 Sat by Pulse 100 Oximetry - Reevaluation(s) Reevaluation #1: 04/07/18 21:07 Patient is speaking in full sentences with no signs of distress noted. ED Medical Decision Making - Medical Decision Making This is a 27-year-old male that presents with possible STD. Patient is stable was examined by me. There is no abdominal tenderness. No pelvic pain. UA obtained. Urine culture is pending. Gonorrhea chlamydia swab pending. Patient was instructed to return in 2 days for GC results. Patient wanted empirical treatment so I ordered 1 g Rocephin and 250 mg of azithromycin by mouth to be given to patient in the ED. Patient was instructed to Follow-up with a primary care doctor in 3-5 days or if symptoms worsen and continue return to emergency room as soon as possible. Critical care attestation.: If time is entered above; I have spent that time in minutes in the direct care of this critically ill patient, excluding procedure time. ED Disposition Clinical Impression: Possible exposure to STD Disposition: DC-01 TO HOME OR SELFCARE Is pt being admited?: No Does the pt Need Aspirin: No Condition: Stable Instructions: Safe Sex (ED) Additional Instructions: Follow-up with a primary care doctor in 3-5 days or if symptoms worsen and continue return to emergency room as soon as possible. Return in 2-3 days for gonorrhea and chlamydia results. Referrals: COURT LIN MD [Primary Care Provider] - 3-5 Days AVANI COHEN MD [Staff Physician] - 3-5 Days [facility] [Outside] - 3-5 Days [facility] [Outside] - 3-5 Days Forms: Work/School Release Form(ED)
[2018-04-07 21:48] LABS: Bilirubin,Urine NEG (Negative); Blood,Urine NEG (Negative); Color,Urine Yellow (Yellow); Mucus,Urine FEW /HPF; Protein,Urine <15 mg/dL mg/dL (Negative); WBC,Urine < 1.0 /HPF (0.0-6.0)
== END 2018-04-07 22:00 | disposition left against medical advice (07) ==
LOC: ED 17:31
DX: Z20.2 Contact with and (suspected) exposure to infections with a predominantly sexual mode of transmission (principal)
CPT/HCPCS: 81001; 87086; 87591; 99283; J0696

== ENCOUNTER 2018-09-24 07:49 | Emergency (ER) | payer SELFPAY ==
--- NOTE | 2018-09-24 09:36 | Emergency Department Report ---
Blank Doc - Documentation Documentation: 28-year-old male presents to the hospital requesting STD check. He's had ting ling after urination for the last 2 days. He Admits to unprotected sex. No discharge, abdominal pain, or fever. Patient screened and has normal vital signs. Patient declined payment for treatment and he was provided alternative resources for STD treatment
== END 2018-09-24 09:48 | disposition left against medical advice (07) ==
LOC: ED 07:49